=== PATIENT | female | born 1965 | race African-American/Black ===

== ENCOUNTER → 2018-02-14 | Outpatient (CLI) | payer OTHER | LOC: ULTRA 10:33 | DX: M25.461 Effusion, right knee (principal); M79.89 Other specified soft tissue disorders ==

== ENCOUNTER 2018-03-01 21:59 | Emergency (ER) | payer OTHER ==
[~2018-03-01] VITALS: Ht 162.6 cm; Wt 72.6 kg
[2018-03-01] MEDS ORDERED: SENNA-DOCUSATE1 EACH PO (23:15)
[2018-03-01] MEDS ORDERED: IBUPROFEN 600600 M1 PO (23:15)
[2018-03-01] MEDS ORDERED: NORCO 5-325 TA1 EACH PO (23:15)
[2018-03-01 23:56] VITALS: BP 117/67
== END 2018-03-02 00:04 | disposition home or self-care (01) ==
LOC: ER 21:59
DX: S92.352A Displaced fracture of fifth metatarsal bone, left foot, initial encounter for closed fracture (principal); W19.XXXA Unspecified fall, initial encounter; Y93.89 Activity, other specified; Y92.89 Other specified places as the place of occurrence of the external cause; Y99.8 Other external cause status